=== PATIENT | female | born 1980 | race Caucasian/White ===

== ENCOUNTER 2017-01-01 11:42 | Inpatient (IN) | payer OTHER ==
--- OUTSIDE RECORDS SUMMARY | 2017-01-01 11:46 | XMS REPORT | Continuity of Care Document ---
:1980 Author Organization [facility] ([facility]) Address [address] [place] [address] Phone [phone] Care Team Providers Name Role Phone Provider, No-Primary Care Primary Care Provider Unavailable Source Comments This disclosure is being made pursuant to the Care Everywhere program, applicable federal and state laws, and may not contain all informaitonavailable regarding this patient.[facility] ([facility]) Active Allergies and Adverse Reactions No Known Allergies Current Medications Prescription Sig. Disp. Refills Start Date End Date Status acetaminophen (TYLENOL Take 1,000 mg by Active EXTRA STRENGTH) 500 mg mouth every 6 hours tablet as needed. Indications: HEADACHE DISORDER Active Problems Problem Noted Date Chronic back pain 01/14/2014 Overview: Chronic low back pain, started after lifting incident in [employer] caf[employer] in November 2012. MRI 12/20/2012, disc bulges only, reviewed by Dr. De León with no surgical indication Still worried about reinjuring herself, I had clarified her misunderstanding about disc bulges/degeneration causing her pain. Stress of dealing with custody issues regarding her daughter as well as financial stressors. Exercise testing to 7 Mets, BMI 30, 25 lb weight gain, lifts up to 25 lbs SF-36 scores 26.2/24.5, SAMMY-7: 12; PHQ9: 18 Goals of Spine Rehab: be able to work out more, play with kids [facility], she was doing better, SF 36 scores 39.5/39.7 an improvement of over 13 points. Given permanent restrictions limiting her to 30 lb lifts and 5% impairment rating. Work related injury 01/14/2014 Social History Tobacco Use Types Packs/Day Years Used Date Current Every Day Smoker 1 20 Smokeless Tobacco: Never Used Tobacco Cessation:Ready to Quit: No; Counseling Given: Yes Comments: Last Filed Vital Signs Vital Sign Reading Time Taken Blood Pressure 110/70 02/03/2014 10:21 AM CDT Pulse 62 02/03/2014 10:21 AM CDT Temperature 36 C (96.8 F) 01/14/2014 11:01 AM CDT Respiratory Rate 16 01/14/2014 11:01 AM CDT Height 1.68 m (5' 6.14") 02/03/2014 10:21 AM CDT Weight 84 kg (185 lb 3 oz) 02/03/2014 10:21 AM CDT Body Mass Index 29.76 02/03/2014 10:21 AM CDT Oxygen Saturation - - Plan of Care Health Maintenance Due Date Last Done Comments Hepatitis B Vaccine (1 of 3 - Primary 1980 Series) Tdap Vaccine 1993 Lipid Disorder Screening 01/14/2000 MMR Vaccine 01/14/2000 Td Vaccine 01/14/2000 Varicella Vaccine (1 of 2 - Adult - 01/14/2000 No Evidence of Immunity) Pneumococcal Vaccine (1 of 1 - 2001 PPSV23) Cervical Cancer Screening 01/14/2012 08/18/2004, 11/17/2003, 05/06/2003 Influenza Vaccine: Seasonal (#1) 05/01/2016 Results from Last 3 Months Not on file
[2017-01-01] MEDS ORDERED: ONDANSETRON HCL/PF 2 MG/ML VIAL IV PRN (11:56)
[2017-01-01] MEDS ORDERED: OXYTOCIN/DEXTROSE 5%-WATER 30 UNITS/500 ML BAG IV ONE ×2 (11:56→21:02)
[2017-01-01] MEDS ORDERED: LIDOCAINE HCL 50 ML VIAL PERI PRN (11:56)
[2017-01-01 12:16] LABS: Hematocrit 35.8 % (37.0-47.0); Hemoglobin 12.1 gm/dL (12.5-16.0); Mean Cell Volume 88.6 fl (78-100); Mean Corpuscular Hgb Conc 33.8 g/dl (32-36); Mean Platelet Volume 10.3 fl (6.0-9.5); Neutrophil # 10.5 K/mm3 (1.3-6.0); Neutrophil % 77.2 % (42-75.0); Platelet Count 223 K/mm3 (150-450); Red Blood Count 4.04 M/mm3 (4.2-5.4); Red Cell Distribution Width 13.2 % (11.5-14.0); White Blood Count 13.6 K/mm3 (4.0-10.5)
[2017-01-01] MEDS: RINGERS SOLUTION,LACTATED 1,000 ML IV PRN ×2 (12:56→15:52)
[2017-01-01 13:49] LABS: Cocaine Ur Negative (NEGATIVE); Urine Barbiturate Negative (NEGATIVE); Urine Benzodiazepines Negative (NEGATIVE); Urine PCP Negative (NEGATIVE); Urine THC Negative (NEGATIVE)
[2017-01-01 13:57] LABS: Urine Opiates Negative (NEGATIVE)
[2017-01-01] MEDS ORDERED: BUPIVACAINE HCL/0.9 % NACL/PF 250 ML EP PRN (15:54)
--- NOTE | 2017-01-01 15:58 | OR ---
Anesthesia Pre Procedure Eval Date of Service: 01/01/17 Pre Procedure Evaluation: Anesthesia Pre Procedure Evaluation Heart Rate:83 Blood Pressure:124/99 Termperature:36.4C Respiratory Rate:18 SaO2:99 DATE: 01/01/2017 TIME: 1555 INDICATIONS: Active labor, labor pain PAST MEDICAL HISTORY: Multipara patient in active labor requesting labor analgesia. History of unsuccessful epidurals at the [facility]. EXAM: Heart regular; lungs clear ASSESSMENT OF MEDICAL STATUS: Appropriate candidate for labor analgesia. Considering previous history a CSE appears to be an appropriate answer. PLANNED PROCEDURE: Combination spinal epidural for labor analgesia Home Medications: HOME MEDICATIONS Vit#96/Ferrous Fum/FA [ S] 1 tab PO DAILY 01/01/17 [Last Taken Unknown]
[2017-01-01] MEDS ORDERED: fentaNYL CITRATE/PF 50 MCG/ML AMPUL IT SCH (16:00)
--- NOTE | 2017-01-01 16:20 | OR ---
Anesthesia Procedure Note - Anesthesia Procedure Note Date of Service: 01/01/17 Narrative: 01/01/17 16:17 ANESTHESIA PROCEDURE NOTE Date of Procedure: 01/01/2017 Time of procedure: 1555. Performed by: FRANCA Rosenthal CRNA, MSN Absorber Operator: Jessie Reyes RN. Preprocedure diagnosis: Active labor, labor pain. Post procedure diagnosis: Same. Procedure: Labor Epidural Placement L3 4. Indications: Labor pain. Findings: See below. Details of the procedure: The patient was placed on the side of the bed in sitting position. The patient was prepped with DuraPrep and draped in a sterile fashion. Lidocaine 1% was infiltrated to the skin and subcutaneous tissues at the level of the L3 4 interspace. The epidural space was identified using a 18-gauge Tuohy needle with [id number] technique. Fentanyl 20 g was given intrathecally the intrathecal needle was then removed and the epidural catheter was threaded approximately 4 cm, the epidural needle was then removed, and after careful aspiration 3 mL of 1.5% lidocaine with 1-200,000 epinephrine was injected without change in maternal heart rate or sensorium. The catheter was then taped in place. EBL: Minimal. Fluids: N/A. Specimen: N/A. Post procedure condition: The patient tolerated the procedure well with. Good Relief. No complications were noted. Thank you for this consultation. Angelo Ching CRNA, ARNP, MSN
--- NOTE | 2017-01-01 18:27 | PN ---
Subjective - Date and Time Seen Date: 01/01/17 Subjective Narrative: Labor note Patient admitted for labor. dilated to 4 cm at admission. GBS negative. Pitocin started for augmentation and now at 6 mu/min. Received epidural at 16: 12. Cervix: 8 cm, 90% with bulging bag with ballotable head at 17:40 per KENIA Roman. Bedside u/s: cephalic, anterior placenta and bipariatal diameter at pubic symphysis. FHR: reassuring, 140s with accels and no decels. [place]: contraction q3-4 min. Plan: will await shift change and reassess AROM if head well engaged. Shellie Tavarez MD Objective - Vitals Vitals: Last Vital Signs Temp 36.4 C L 01/01/17 16:26 Pulse 16 L 01/01/17 16:26 Resp 88 H 01/01/17 16:26 BP 126/82 01/01/17 16:26 Pulse Ox 98 01/01/17 16:26 - Abnormal Lab Findings Abnormal Lab Findings: Abnormal Lab Results 01/01/17 Range/Units 12:10 WBC 13.6 H (4.0-10.5) K/mm3 RBC 4.04 L (4.2-5.4) M/mm3 Hgb 12.1 L (12.5-16.0) gm/dL Hct 35.8 L (37.0-47.0) % MPV 10.3 H (6.0-9.5) fl Immature Gran % (Auto) 1.30 H (0.001-0.429) % Immature Gran # (Auto) 0.17 H (0.000-0.0310) K/mm3 Neutrophils % 77.2 H (42-75.0) % Lymphocytes % 15.9 L (20-51) % Neutrophils # 10.5 H (1.3-6.0) K/mm3 Cauti Physician Documentation - Urinary Catheter Management Urethral (Osborn) Date of Insertion: 01/01/17 Time of Insertion: 16:12
--- NOTE | 2017-01-01 20:52 | OR ---
Operative Report - Dictated Report Narrative: Spontaneous Vaginal Delivery Note: 36 yo, CF, at 39 3/7 weeks, admitted in labor, dilated to 4 cm at admission. GBS was negative. Pitocin started for augmentation. Progressed to 6- 7 cm and received an epidural at that time. AROM at 9 cm with small clear fluid. Progressed to complete without complications. Pushed with contractions and descent. Head delivered in LOP with compound right hand over the perineum. No nuchal cord noted. The anterior shoulder delivered, followed by the posterior shoulder and the rest of the baby without difficulty. Baby cried at perineum. Cord was clamped, and cut by father of baby. Baby placed on maternal abdomen for drying and care by the nursing. Cord blood was also obtained. Placenta delivered intact with 3 vessel cord. Pitocin drip started after placenta delivered. Exam of the perineum, vaginal and cervix revealed a small first degree perineum laceration. This was repaired with 3-0 Vicryl suture in a normal fashion. Fundus was massaged and firm. Bleeding was minimal. Mother and baby tolerated the delivery well. EBL 250 ml. : male, 2930 grams, 6 lbs and 7.3 oz. 9/9. Time of delivery: 20:29. Shellie Tavarez MD History for Definition: * The number of deliveries resulting in a live the patient experienced prior to current hospitalization * The previous delivery of live twins or any live multiple gestation is considered one live event. *If primagravida or nulliparous is documented select zero for the number of previous live births. Live Events: 1
[2017-01-01] MEDS ORDERED: BISACODYL 10 MG SUPP.RECT RC PRN (21:02)
[2017-01-01] MEDS ORDERED: SENNOSIDES 8.6 MG TABLET PO PRN (21:02)
[2017-01-01] MEDS ORDERED: GLYCERIN/WITCH HAZEL LEAF 40 APPL BOX TP PRN (21:02)
[2017-01-01] MEDS ORDERED: HYDROcodone/ACETAMINOPHEN 1 EACH TABLET PO PRN (21:02)
[2017-01-01] MEDS ORDERED: ACETAMINOPHEN 325 MG TABLET PO PRN (21:02)
[2017-01-01] MEDS ORDERED: diphenhydrAMINE HCL 25 MG CAPSULE PO PRN (21:02)
[2017-01-01] MEDS ORDERED: HYDROCORTISONE 30 APPL TUBE TP PRN (21:02)
[2017-01-01] MEDS ORDERED: BENZOCAINE/MENTHOL 81 SPRAY CAN TP PRN (21:02)
[2017-01-01] MEDS: IBUPROFEN 800 MG TABLET PO PRN (21:39)
[2017-01-02] MEDS: IBUPROFEN 800 MG TABLET PO PRN ×3 (04:39→19:02)
[2017-01-02] MEDS ORDERED: SIMETHICONE 80 MG TAB.CHEW PO PRN (04:43)
[2017-01-02] MEDS: DOCUSATE SODIUM 100 MG CAPSULE PO SCH ×2 (09:17→20:30)
[2017-01-03] MEDS: IBUPROFEN 800 MG TABLET PO PRN ×2 (01:02→07:24)
[2017-01-03] MEDS: DOCUSATE SODIUM 100 MG CAPSULE PO SCH ×2 (07:25→10:21)
[2017-01-03 07:53] VITALS: BP 100/68
--- NOTE | 2017-01-03 09:28 | PN ---
Subjective - Date and Time Seen Date: 01/02/17 Subjective Narrative: day 1, s/p doing well. bottle feeding. normal lochia. Objective - Vitals Vitals: Last Vital Signs Temp 36.2 C L 01/03/17 07:45 Pulse 66 01/03/17 07:45 Resp 20 01/03/17 07:45 BP 100/68 01/03/17 07:45 Pulse Ox 98 01/03/17 07:45 - Exam Constitutional: Present: Alert, Oriented x3, Cooperative Respiratory: Present: no respiratory distress Cardiovascular/Chest: Present: normal peripheral pulses Abdomen: Present: soft, nontender, nondistended, other - fundus firm at umbilicus Extremity: Present: normal range of motion, no pedal edema, no calf tenderness Skin Exam: Present: normal color, warm/dry, no cyanosis Eye contact: Present: cooperative, good eye contact Cauti Physician Documentation - Urinary Catheter Management Urethral (Osborn) Date of Insertion: 01/01/17 Time of Insertion: 16:12 Date of Removal: 01/01/17 Time of Removal: 20:25 Assessment/Plan Plan Narrative: A: PPD#1, s/p stable Plan: routine care. ambulation encouraged. Shellie Tavarez MD
--- NOTE | 2017-01-03 09:31 | PN ---
Subjective - Date and Time Seen Date: 01/03/17 Subjective Narrative: day 2, s/p having some cramps only, otherwise no complaints. ambulating well. pain controlled. bottle feeding. normal lochia. Objective - Vitals Vitals: Last Vital Signs Temp 36.2 C L 01/03/17 07:45 Pulse 66 01/03/17 07:45 Resp 20 01/03/17 07:45 BP 100/68 01/03/17 07:45 Pulse Ox 98 01/03/17 07:45 - Exam Constitutional: Present: Alert, Oriented x3, Cooperative Respiratory: Present: no respiratory distress Cardiovascular/Chest: Present: normal peripheral pulses Abdomen: Present: soft, nontender, nondistended, other - fundus firm Extremity: Present: no pedal edema, no calf tenderness Skin Exam: Present: normal color, warm/dry, no cyanosis Eye contact: Present: cooperative, good eye contact, normal speech Cauti Physician Documentation - Urinary Catheter Management Urethral (Osborn) Date of Insertion: 01/01/17 Time of Insertion: 16:12 Date of Removal: 01/01/17 Time of Removal: 20:25 Assessment/Plan Plan Narrative: A: day 2, s/p stable and well. Plan: will discharge home today. Shellie Tavarez MD
== END 2017-01-03 14:30 | disposition home or self-care (01) | DRG 775 ==
LOC: OB 11:42 → MS 01-03 14:13
PROVIDERS: ADMIT Obstetrics & Gynecology; ATTEND Obstetrics & Gynecology
PROC: 10E0XZZ Delivery of Products of Conception, External Approach (ICD-10-PCS; principal; 2017-01-01)
PROC: 10907ZC Drainage of Amniotic Fluid, Therapeutic from Products of Conception, Via Natural or Artificial Opening (ICD-10-PCS; 2017-01-01)
PROC: 0HQ9XZZ Repair Perineum Skin, External Approach (ICD-10-PCS; 2017-01-01)
PROC: 4A1HXCZ Monitoring of Products of Conception, Cardiac Rate, External Approach (ICD-10-PCS; 2017-01-01)
PROC: 3E0S3CZ (ICD-10-PCS; 2017-01-01)
DX: O69.81X0 Labor and delivery complicated by cord around neck, without compression, not applicable or unspecified (principal); O70.0 First degree perineal laceration during delivery; Z3A.39 39 weeks gestation of pregnancy; Z37.0 Single live birth

== ENCOUNTER 2017-02-08 07:02 | Day surgery (SDC) | payer OTHER ==
[~2017-02-08 07:02] MED LIST: RINGERS SOLUTION,LACTATED 1,000 ML IV PRN
--- OUTSIDE RECORDS SUMMARY | 2017-02-08 07:06 | XMS REPORT | Continuity of Care Document ---
:1980 Author Organization [facility] ([facility]) Address [address] [place] [address] Phone [phone] Care Team Providers Name Role Phone Provider, No-Primary Care Primary Care Provider Unavailable Source Comments This disclosure is being made pursuant to the Care Everywhere program, applicable federal and state laws, and may not contain all informaitonavailable regarding this patient.[facility] ([facility]) Active Allergies and Adverse Reactions No Known Allergies Current Medications Prescription Sig. Disp. Refills Start Date End Date Status acetaminophen (TYLENOL Take 1,000 mg by Active EXTRA STRENGTH) 500 mg mouth every 6 hours tablet as needed. Indications: HEADACHE DISORDER Active Problems Problem Noted Date Chronic back pain 01/14/2014 Overview: Chronic low back pain, started after lifting incident in [employer] in November 2012. MRI 12/20/2012, disc [...]
[2017-02-08 07:25] LABS: Hematocrit 40.5 % (37.0-47.0); Hemoglobin 13.7 gm/dL (12.5-16.0); Mean Cell Volume 87.7 fl (78-100); Mean Corpuscular Hemoglobin 29.7 pg (27-31); Mean Corpuscular Hgb Conc 33.8 g/dl (32-36); Mean Platelet Volume 9.5 fl (6.0-9.5); Neutrophil # 3.9 K/mm3 (1.3-6.0); Neutrophil % 52.7 % (42-75.0); Platelet Count 214 K/mm3 (150-450); Red Blood Count 4.62 M/mm3 (4.2-5.4); Red Cell Distribution Width 12.7 % (11.5-14.0); White Blood Count 7.4 K/mm3 (4.0-10.5)
[2017-02-08] MEDS ORDERED: RINGERS SOLUTION,LACTATED 1,000 ML IV ONE ×2 (07:31→08:55)
[2017-02-08 07:39] LABS: Albumin * 3.3 gm/dl (3.4-5.0); Anion Gap 12.8 mmol/L (6.8-13.8); BUN/Creatinine Ratio 12.9 (9.0-21.6); Bilirubin, Total 0.4 mg/dL (0.0-1.1); Ca. Corrected For Albumin 9.5 mg/dL (8.4-10.2); Calcium * 9.3 mg/dL (7.9-10.9); Potassium 3.8 mmol/L (3.4-4.6); Total Protein 6.5 gm/dL (6.2-8.2)
[2017-02-08] MEDS ORDERED: BUPIVACAINE HCL 50 ML VIAL IJ ONE (09:20)
[2017-02-08] MEDS ORDERED: RINGERS SOLUTION,LACTATED 1,000 ML IV PRN (09:31)
[2017-02-08] MEDS ORDERED: oxyCODONE HCL/ACETAMINOPHEN 1 TAB TABLET PO ONE (10:30)
[2017-02-08] MEDS ORDERED: IBUPROFEN 800 MG TABLET PO ONE (10:30)
--- NOTE | 2017-02-08 11:46 | OR ---
Operative Report - Dictated Report Narrative: Date of Procedure: 02/08/2017 PROCEDURE: Laparoscopic bilateral salpingectomy ANESTHESIA: General, endotracheal intubation. PREOPERATIVE DIAGNOSIS: 1. Multiparity desiring sterilization with bilateral salpingectomy. POSTOPERATIVE DIAGNOSES: 1. Multiparity desiring sterilization with bilateral salpingectomy. SURGEON: Shellie Tavarez MD EXPANDED DUTY DENTAL ASSISTANT: Irma Cabrera FINDINGS: Normal uterus, ovaries and tubes. SPECIMEN: 1. right fallopian tube 2. left fallopian tube DRAINS: None. URINE OUTPUT: BLOOD LOSS: 5 ml INTRAOPARATIVE IV FLUIDS: 750 ml COMPLICATIONS: None. DESCRIPTION OF PROCEDURE: The patient consented prior to the operation and taken to the operating room. She was placed on the operating table supine. SCDs were placed on her lower extremities. General anesthesia was induced. She was repositioned in the dorsal lithotomy position. Her right arm was tucked at her side under the drape. Exam under anesthesia revealed a normal size uterus with no palpable adnexal mass. The abdomen was prepped with Chloroprep and the vagina was prepped with Betadine. She was draped in the usual sterile fashion. A time- out procedure was conducted to confirm the correct patient for the correct procedure. After time-out, a Osborn catheter was placed into the bladder. A bivalve speculum was placed into the vagina. The cervix was visualized. The vagina and the cervix were prepped with Betadine one more time. The anterior cervix was grasped with a single-tooth tenaculum. The uterus was sounded to 8 cm. A Zumi uterine manipulator was inserted into the uterine cavity. The balloon was inflated with 5 cc of air. The single-tooth tenaculum was removed. [place] speculum was removed. The surgeon then changed gloves and attention was paid to the abdomen. A small vertical incision was made at the upper edge of the umbilicus. A Veress needle was inserted into the abdominal cavity. Intraabdominal placement was confirmed with a saline drop test and with low entry pressure of 4 mmHg. The abdomen was insufflated with CO2 gas to an intraabdominal pressure of 15 mmHg. The Veress needle was removed. A 5 mm trocar with the laparoscope was inserted through the umbilicus incision into the abdomen. Intraabdominal placement was confirmed with the laparoscope. Survey of the entry site revealed no trauma to the underlying structures. Survey of the upper abdomen revealed a normal- appearing liver and gall bladder. The patient was then placed in Trendelenburg position. A left lower quadrant trocar (5 mm) was placed superior and medial to the anterior superior iliac spine to avoid the vessels and nerves. A third trocar (8 mm) was placed suprapubically in the midline. All trocars were placed under the direct visualization of the laparoscope. Survey of the pelvis revealed the findings noted above. Next the right fallopian tube was elevated. The mesosalpinx was divided with the Thunderbeat. The division was carried to the cornual region. The right fallopian tube was divided at the uterine cornue using the Thunderbeat. The right tube was removed through the 8 mm trocar. Attention was turned to the left side. The left fallopian tube was elevated and the mesosalpinx was divided with the Thunderbeat. The division was carried to the cornual region. The left fallopian tube was divided at the uterine cornue. The left tube was removed through the 8 mm trocar. There was hemostasis. No irrigation needed. The lower abdominal trocars were removed under direct visualization of the laparoscope. The abdomen was deflated. The trocar at the umbilicus was removed with the laparoscope. The skin incisions were closed with 4-0 Monocryl suture. The incision was infiltrated with 2-3 ml of 0.25% Marcaine for post op pain control. The incision was covered with steri strips. The Zumi uterine manipulator was removed. There was no bleeding from the vagina. Sponge, laps and needle counts were correct x 2. The patient tolerated the procedure well and taken to the recovery room in stable condition. Shellie Tavarez MD
[2017-02-08 12:03] VITALS: BP 104/61
== END 2017-02-08 07:03 | disposition home or self-care (01) ==
LOC: AMB 07:02
PROVIDERS: ATTEND Obstetrics & Gynecology
PROC: 0UT74ZZ Resection of Bilateral Fallopian Tubes, Percutaneous Endoscopic Approach (ICD-10-PCS; principal; 2017-02-08 08:05)
DX: Z30.2 Encounter for sterilization (principal); Z87.891 Personal history of nicotine dependence; Z68.31 Body mass index [BMI] 31.0-31.9, adult